=== PATIENT | female | born 1945 | race Caucasian/White ===

== ENCOUNTER 2018-03-26 05:50 | Day surgery (SDC) | payer MEDICARE ==
[2018-03-26] MEDS: LR 1,000 ML IV (06:35)
[2018-03-26] MEDS ORDERED: LIDOCAINE 1% MDV 20ML VIAL SQ (07:00)
[2018-03-26] MEDS ORDERED: fentaNYL 100 MCG/2 ML INJECTION (J3010) As Ordered (07:16)
[2018-03-26] MEDS ORDERED: PROPOFOL 200 MG/20 ML VIAL As Ordered ×2 (07:16→08:31)
[2018-03-26] MEDS ORDERED: LIDOCAINE 2% INJ 100 MG/5 ML SDV (FOR ANES.) As Ordered (07:16)
[2018-03-26] MEDS ORDERED: MIDAZOLAM INJ 2 MG/2 ML VIAL (J2250) As Ordered (07:16)
[2018-03-26] MEDS: VASOPRESSIN INJ 20 UNITS/ML VIAL As Ordered (08:23)
[2018-03-26] MEDS: BUPIVACAINE HCL 0.25% 30 ML VIAL As Ordered (08:50)
[2018-03-26] MEDS ORDERED: HYDROmorphone HCL 2 MG/ML 1ML VIAL (J1170) As Ordered (09:03)
[2018-03-26] MEDS ORDERED: ONDANSETRON 4MG/2ML VIAL (J2405) As Ordered (10:29)
[2018-03-26] MEDS ORDERED: IBUPROFEN 600 MG TAB PO (10:45)
[2018-03-26] MEDS ORDERED: LR 1,000 ML IV ×2 (10:45→11:00)
[2018-03-26] MEDS ORDERED: MEPERIDINE INJ 25 MG/ML VIAL (J2175) IV (11:00)
[2018-03-26] MEDS ORDERED: ONDANSETRON 4MG/2ML VIAL (J2405) IV (11:00)
[2018-03-26] MEDS ORDERED: PERCOCET 5MG/325MG TAB PO (11:00)
[2018-03-26] MEDS ORDERED: fentaNYL 100 MCG/2 ML INJECTION (J3010) IV (11:00)
[2018-03-26] MEDS ORDERED: NORCO, ANEXSIA 5/325MG TABLET (HYDROcodone/ACETAMINOPHEN) PO (11:00)
[2018-03-26] MEDS ORDERED: METOCLOPRAMIDE INJ 10MG/2ML VIAL (J2765) IV (11:00)
== END 2018-03-26 11:50 | disposition home or self-care (01) ==
LOC: M SDC 05:50
DX: N81.89 Other female genital prolapse (principal)
CPT/HCPCS: 57120

== ENCOUNTER → 2020-03-09 | Outpatient (CLI) | payer MEDICARE ==
[~2020-03-09] MED LIST: ASPI81TA26 PO; ATOR1TAB19 PO; CALC1TAB19 PO; LOSA50TA5 PO; MUCI600T31 PO; PROAAER10 INH
== END ==
LOC: M LABSMTC 11:01
PROVIDERS: ATTEND Anesthesiology
DX: Z01.812 Encounter for preprocedural laboratory examination (principal); Z20.828 Contact with and (suspected) exposure to other viral communicable diseases

== ENCOUNTER 2020-03-14 06:08 | Day surgery (SDC) | payer MEDICARE ==
[~2020-03-14] VITALS: Ht 154.9 cm; Wt 68.9 kg
[~2020-03-14 06:08] MED LIST changes: +LR 1,000 ML IV ONE; +ceFAZolin SOD 2 GM in IV 1 EA IV ONE
[2020-03-14] MEDS ORDERED: propofoL 200 MG/20 ML VIAL As Ordered ONE (07:12)
[2020-03-14] MEDS ORDERED: LIDOCAINE 2% 100MG/5ML SDV (FOR ANES.) As Ordered ONE (07:12)
[2020-03-14] MEDS ORDERED: ROCURONIUM BROMIDE 50 MG/5 ML VIAL As Ordered ONE (07:12)
[2020-03-14] MEDS ORDERED: fentaNYL 250 MCG/5 ML INJECTION (J3010) As Ordered ONE (07:12)
[2020-03-14] MEDS ORDERED: MIDAZOLAM INJ 2MG/2ML VIAL (J2250 PER 1MG) As Ordered ONE (07:13)
[2020-03-14] MEDS ORDERED: BUPIVACAINE HCL 0.5% 30 ML VIAL As Ordered ONE (07:38)
[2020-03-14] MEDS ORDERED: LABETALOL 100MG/20ML VIAL As Ordered ONE (09:06)
[2020-03-14] MEDS ORDERED: ONDANSETRON 4MG/2ML VIAL As Ordered ONE (10:02)
[2020-03-14] MEDS ORDERED: KETOROLAC 60MG 2ML VIAL As Ordered ONE (10:02)
[2020-03-14] MEDS ORDERED: dexameTHASONE 4 MG/ML 1ML VIAL (J1100 PER 1MG) As Ordered ONE (10:02)
[2020-03-14] MEDS ORDERED: fentaNYL 100 MCG/2 ML INJECTION (J3010) As Ordered ONE ×2 (10:02→10:18)
[2020-03-14] MEDS ORDERED: SUGAMMADEX SODIUM 500 MG/5 ML VIAL (BRIDION) As Ordered ONE (10:17)
[2020-03-14] MEDS ORDERED: DESFLURANE 240 ML INHALANT As Ordered ONE (10:32)
[2020-03-14] MEDS ORDERED: METOCLOPRAMIDE INJ 10MG/2ML VIAL (J2765 PER 1) IV PRN (11:15)
[2020-03-14] MEDS ORDERED: oxyCODONE 5MG TAB PO PRN (11:15)
[2020-03-14] MEDS ORDERED: MEPERIDINE INJ 25 MG/ML VIAL (J2175) IV PRN (11:15)
[2020-03-14] MEDS ORDERED: LR 1,000 ML IV SCH ×2 (11:15)
[2020-03-14] MEDS ORDERED: fentaNYL 100 MCG/2 ML INJECTION (J3010) IV PRN (11:15)
[2020-03-14] MEDS ORDERED: ONDANSETRON 4MG/2ML VIAL IV PRN (11:15)
[2020-03-14 11:59] VITALS: BP 130/67
--- NOTE | 2020-03-15 10:01 | REP ---
INDICATION: L ORIF. COMPARISON: None. TECHNIQUE: Seven C-arm views of the left foot are performed intraoperatively. FINDINGS: There is placement of a metallic plate and screws at the 1st metatarsophalangeal joint. Two metallic pins are placed vertically through the phalanges of the 2nd toe. A small screw is seen in the head of the 2nd metatarsal. The osseous structures are well-aligned. IMPRESSION: 74 seconds of fluoroscopy time is utilized. <Electronically signed by Cody Muñoz > 03/15/20 0930
--- NOTE | 2020-04-04 12:07 | RO ---
DATE OF OPERATION: 03/14/2020 PREOPERATIVE DIAGNOSIS: 1. Left hallus valgus deformity. 2. Left second cross-over toe POSTOPERATIVE DIAGNOSIS: 1. Left hallus valgus deformity. 2. Left second cross-over toe. PROCEDURE: 1. Left first metatarsophalangeal joint arthrodesis. 2. Left second metatarsal shortening osteotomy. 3. Left second cross over toe repair. 4. Use of the mini C-arm SURGEON: Pao Tolentino MD DEFLASH AND WASH OPERATOR: JOSIAH Karimi ANESTHESIA: ESTIMATED BLOOD LOSS: 10 cc COMPLICATIONS: None. CONDITION: Stable in recovery. INDICATIONS: Vilma العراقي is a 74-year-old female who has had long standing pain and deformity due to a hallus valgus deformity and second cross-over toe. Risks and benefits of surgery were discussed with the patient in detail, included, but not limited to infection, damage to nerves and blood vessels, continued pain and stiffness and need for additional procedures. Informed consent was obtained. DESCRIPTION OF OPERATIVE PROCEDURE: The patient was met in the preoperative holding area where the left lower extremity was marked as the correct operative site. She was taken to the operating room where the left lower extremity was prepped and draped in the normal sterile fashion. An official time-out was held where the correct the patient, operative side and operative procedure were verified. She was given antibiotics within 60 minutes prior to incision. The leg was exsanguinated and tourniquet was inflated to 250 mmHg. An incision was made directly over the first MTP joint. The extensive hallucis longus (EHL) tendon was retracted laterally. The joint capsule was incised. 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 Any remaining cartilage was dbrided with curette. I then used a 0.062 K-wire to drill the subchondral bone on both sides of the joint. Santosh osteotome was further used to fish scale and prepare the joint. The toe was placed in appropriate position with a slight amount of valgus and dorsiflexion and was pinned in place. Mini C-arm was used in AP, lateral and oblique views all throughout the case. The toe was found to be in appropriate position. Next, attention was turned to the second toe. An incision was made in the second web space. The EHL tendon was identified and lengthened in deep fashion. A capsulotomy was performed. There is moderate arthritis of the second metatarsal head. A Jonny osteotomy was performed in order to shorten the metatarsal head. This was secured with an Arthrex snap-off screw. Following this, an incision was made directly over the proximal interphalangeal (PIP) joint of the second toe. The extensor royal was incised. Cartilage was excised on both sides of the joint using a 39 saw. The joint was then pinned in place using a 0.062 K-wire. It was further secured with a 0.045 K-wire. At this point, there was good correction of the second toe. Attention was then turned back to the first toe. A 3.0 mm cannulated lag screw was placed across the joint with good compression. I then also selected an Arthrex 1st MTP fusion plate and this was used to further secure the arthrodesis. It was secured with a combination of locking screws and cortical screws. There has been compression across the joint. Copious irrigation was performed. Final aspiration was performed by myself using the mini C- arm and AP, oblique and lateral views were all found to be satisfactory. The capsule was closed with 2-0 Vicryl over the first MTP joint. The remaining subcutaneous tissues were closed with 3-0 Vicryl and the skin was closed with a combination of 3-0 Monocryl and 3-0 nylon. Sterile dressing was applied. The patient was extubated and transferred to recovery room in stable condition. A well padded splint had been placed after her dressing was applied. Plan: The patient will be nonweightbearing for 6 weeks. She will be on aspirin for deep venous thrombosis (DVT) prophylaxis. I will see her back in two weeks for suture removal and advancement into a boot. FRANCESCA
== END 2020-03-14 12:05 | disposition home or self-care (01) ==
LOC: M SDC 06:08
PROVIDERS: ATTEND Orthopaedic Surgery
DX: M20.12 Hallux valgus (acquired), left foot (principal); M20.5X2 Other deformities of toe(s) (acquired), left foot; I10 Essential (primary) hypertension; E78.5 Hyperlipidemia, unspecified; M12.9 Arthropathy, unspecified; J44.9 Chronic obstructive pulmonary disease, unspecified; L21.9 Seborrheic dermatitis, unspecified; Z79.82 Long term (current) use of aspirin; Z79.899 Other long term (current) drug therapy; Z85.820 Personal history of malignant melanoma of skin; Z88.8 Allergy status to other drugs, medicaments and biological substances; Z90.710 Acquired absence of both cervix and uterus; Z98.51 Tubal ligation status
CPT/HCPCS: 28308; 28750; 76000; C1713; C1762; J0690; J1100; J1885; J2250; J2405; J3010

== ENCOUNTER → 2021-12-02 | Outpatient (CLI) | payer MEDICARE ==
[~2021-12-02] MED LIST changes: -LR 1,000 ML IV ONE; -ceFAZolin SOD 2 GM in IV 1 EA IV ONE
== END ==
LOC: M LABSMTC 10:38
PROVIDERS: ATTEND Anesthesiology
DX: Z01.812 Encounter for preprocedural laboratory examination (principal); Z20.822 Contact with and (suspected) exposure to COVID-19